=== PATIENT | female | born 1970 | race Caucasian/White ===

== ENCOUNTER → 2020-12-11 09:25 | Outpatient (CLI) | payer BC, SELFPAY ==
--- NOTE | ~2020-12-11 | XR_ITS ---
XR wrist RT min 3V DATE: 12/11/2020 09:57 INDICATION: Right wrist pain TECHNIQUE: 4 views COMPARISON: None FINDINGS: No fracture or dislocation, periosteal reaction or bone destruction, joint space narrowing, erosive change or chondrocalcinosis. IMPRESSION: Negative Reviewed, dictated and finalized at location B. IMPRESSION: Negative
== END ==
PROVIDERS: Visit Provider Chiropractor
DX: M25.531 Pain in right wrist (principal)
CPT/HCPCS: 73110

== ENCOUNTER 2020-12-29 06:43 | Outpatient (CLI) | payer BC, SELFPAY ==
--- NOTE | ~2020-12-29 | MR_ITS ---
EXAMINATION: MR wrist RT wo con DATE: 12/29/2020 08:04 INDICATION: Right wrist pain TECHNIQUE: Magnetic resonance imaging (MRI) of the right wrist was performed without intravenous cont rast. Sequences performed include axial PD-weighted FSE and PD-weighted FS FSE, coronal PD-weighted F S FSE and T1-weighted SE, and sagittal PD-weighted FS FSE and PD-weighted FSE. COMPARISON: None FINDINGS: Intrinsic ligaments: The scapholunate and lunotriquetral ligaments are normal. Triangular fibrocartilage complex (TFCC): There is mild partial tearing of the central fiber cartilaginous disc of the triangular fibrocartilag e complex with suggestion of a tiny full-thickness perforation near its radial attachment. The foveal and styloid attachments as well as the dorsal and volar radioulnar ligaments are normal. The ulnar c ollateral ligament, ulnotriquetral ligament and meniscal homologue are normal. The extensor carpi uln nicholas tendon sheath is normal. Extensor wrist: Increased fluid in the tendon sheath of the first dorsal compartment with prominent surrounding soft tissue edema which is centered underlying the marker indicating the region of concern in consistent w ith de Quervain's tenosynovitis. There is mild tendinopathy and longitudinal split tearing of the abd uctor pollicis longus tendon. Mild tendinopathy without discrete tear of the extensor pollicis brevis tendon. Minimal tenosynovitis in the second dorsal compartment extending along the normal-appearing extensor carpi radialis longus and brevis tendons. Remaining extensor tendons are normal. Flexor wrist: The flexor tendons of the wrist are normal. No abnormality in the carpal tunnel with normal median n erve. Guyon's canal: Guyon's canal including the ulnar nerve and artery are normal. Bones/other: Bone alignment is normal. Normal marrow signal. No fracture, erosions, avascular necrosis or patholog ic marrow replacing process. 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 IMPRESSION: 1. De Quervain's tenosynovitis in the first dorsal compartment with mild tendinopathy and longitudina l split tearing of the abductor pollicis longus tendon. 2. Mild partial tear of the central fiber cartilaginous disc of the triangular fibrocartilage complex . Reviewed, dictated and finalized at location A. IMPRESSION: 1. De Quervain's tenosynovitis in the first dorsal compartment with mild tendin opathy and longitudinal split tearing of the abductor pollicis longus tendon. 2. Mild partial tear of the central fiber cartilaginous disc of the triangular fibrocartilage complex.
== END 2020-12-29 06:44 | disposition home or self-care (01) ==
PROVIDERS: Visit Provider Chiropractor
DX: M65.4 Radial styloid tenosynovitis [de Quervain] (principal)
CPT/HCPCS: 73221